=== PATIENT | female | born 1980 | race Caucasian/White ===

== ENCOUNTER → 2020-03-16 | Outpatient (CLI) | payer OTHER ==
[~2020-03-16] MED LIST: CITA40TA12 PO
== END | disposition home or self-care (01) ==
LOC: STAR 12:11
PROVIDERS: ATTEND Obstetrics & Gynecology
DX: Z01.812 Encounter for preprocedural laboratory examination (principal); Z20.828 Contact with and (suspected) exposure to other viral communicable diseases
CPT/HCPCS: 36415; 87635

== ENCOUNTER 2020-03-22 12:32 | Outpatient (CLI) | payer OTHER ==
[~2020-03-22] VITALS: Ht 162.6 cm; Wt 113.6 kg
[2020-03-22 12:38] VITALS: BP 120/72
[2020-03-22] MEDS ORDERED: PREN1TAB62 PO (12:44)
[2020-03-22] MEDS ORDERED: VALA500T4 PO (12:45)
[2020-03-23] MEDS ORDERED: CEFAZOLIN 1,000 MG ONE (07:16)
[2020-03-23] MEDS ORDERED: EPHEDRINE 50 MG/ML, 1ML ONE (07:16)
[2020-03-23] MEDS ORDERED: OXYTOCIN 10 UNITS/ML, 1ML ONE (07:16)
[2020-03-23] MEDS ORDERED: PHENYLEPHRINE 10 MG/ML ONE (07:16)
[2020-03-23] MEDS ORDERED: DEXAMETHASONE 4 MG/ML, 1ML ONE (07:16)
[2020-03-23] MEDS ORDERED: KETOROLAC 30 MG/1 ML ONE (07:16)
[2020-03-23] MEDS ORDERED: ONDANSETRON 2MG/ML, 2ML ONE (07:16)
[2020-03-23] MEDS ORDERED: FENTANYL PF 100 MCG/2ML ONE (07:16)
[2020-03-23] MEDS ORDERED: HYDROmorphone 2 MG/ML, 1ML ONE (08:03)
== END 2020-03-22 14:20 | disposition home or self-care (01) ==
LOC: LDOP 12:32
PROVIDERS: ATTEND Obstetrics & Gynecology
DX: O36.8330 Maternal care for abnormalities of the fetal heart rate or rhythm, third trimester, not applicable or unspecified (principal); Z3A.38 38 weeks gestation of pregnancy
CPT/HCPCS: 59025; J0690; J1100; J1170; J1885; J2405; J3010; J2370; J2590

== ENCOUNTER 2020-03-23 05:24 | Inpatient (IN) | payer OTHER ==
[~2020-03-23] VITALS: Ht 162.6 cm; Wt 115.0 kg
[~2020-03-23 05:24] MED LIST changes: +PREN1TAB62 PO; +VALA500T4 PO
[2020-03-23] MEDS ORDERED: LACTATED RINGERS 1,000 ML IVBOLUS ONE (05:30)
[2020-03-23] MEDS ORDERED: SODIUM CITRATE/CITRIC ACID 30 ML UDC PO ONE (05:30)
[2020-03-23] MEDS ORDERED: CALCIUM CARBONATE 500 MG TAB.CHEW PO PRN (05:30)
[2020-03-23] MEDS ORDERED: ONDANSETRON 2MG/ML, 2ML IVPush ONE (05:30)
[2020-03-23] MEDS ORDERED: METOCLOPRAMIDE 5 MG/ML, 2ML IV ONE (05:30)
[2020-03-23] MEDS ORDERED: NEWBORN KIT ONE (05:36)
[2020-03-23] MEDS ORDERED: METOCLOPRAMIDE 5 MG/ML, 2ML ONE (05:36)
[2020-03-23] MEDS ORDERED: OXYTOCIN 30U/ 0.9% NaCL 500ML 500 ML ONE (05:36)
[2020-03-23 06:09] VITALS: BP 119/74
[2020-03-23 06:13] LABS: BASOPHILS % (AUTO) 1 % (0-1); EOSINOPHILS % (AUTO) 2 % (1-7); LYMPHOCYTES % (AUTO) 20 % (22-44); MEAN CORPUSCULAR HGB CONC 33.6 g/dL (32.4-35.8); MEAN PLATELET VOLUME 8.2 fL (7.4-10.4); MONOCYTES % (AUTO) 7 % (2-9); NEUTROPHILS % (AUTO) 71 % (42-75); PLATELET COUNT 297 x10^3/uL (130-400)
[2020-03-23 06:15] LABS: MD NO
[2020-03-23] MEDS ORDERED: HYDROcodone/APAP 7.5-325MG/15ML UDC PO PRN (07:30)
[2020-03-23] MEDS ORDERED: EPHEDRINE 50 MG/ML, 1ML IVPush PRN (07:30)
[2020-03-23] MEDS ORDERED: MEPERIDINE/PF 25MG/0.5ML IVPush PRN (07:30)
[2020-03-23] MEDS ORDERED: LABETALOL 5MG/ML, 20ML IV PRN (07:30)
[2020-03-23] MEDS ORDERED: ALBUTEROL SULFATE 2.5 MG/3 ML NPPB PRN (07:30)
[2020-03-23] MEDS ORDERED: OXYcodone 5 MG/5 ML ORAL.SOL UDC PO PRN (07:30)
[2020-03-23] MEDS ORDERED: HYDROmorphone 2 MG/ML, 1ML IVPush PRN (07:30)
[2020-03-23] MEDS ORDERED: PROMETHAZINE 25 MG/ML, 1ML IV PRN (07:30)
[2020-03-23] MEDS ORDERED: hydrALAzine 20 MG/ML, 1ML IV PRN (07:30)
[2020-03-23] MEDS ORDERED: METOPROLOL 1 MG/ML, 5ML IV PRN (07:30)
[2020-03-23] MEDS ORDERED: ONDANSETRON 2MG/ML, 2ML IVPush PRN (07:30)
[2020-03-23] MEDS ORDERED: FENTANYL PF 100 MCG/2ML IV PRN (07:30)
[2020-03-23] MEDS ORDERED: MIDAZOLAM 1 MG/ML, 2ML IV PRN (07:30)
[2020-03-23] MEDS ORDERED: MORPHINE SULFATE 4 MG/ML, 1ML IVPush PRN (08:00)
[2020-03-23] MEDS ORDERED: METHYLERGONOVINE 0.2 MG/ML IM PRN (08:00)
[2020-03-23] MEDS ORDERED: MISOPROSTOL 200 MCG TABLET PR PRN (08:00)
[2020-03-23] MEDS ORDERED: IBUPROFEN 600 MG TABLET PO PRN (08:00)
[2020-03-23] MEDS: LACTATED RINGERS 1,000 ML IV SCH ×4 (08:00→18:00)
[2020-03-23] MEDS ORDERED: CARBOPROST TROMETHAMINE 250 MCG/ML, 1ML IM PRN (08:00)
[2020-03-23] MEDS ORDERED: ACETAMINOPHEN 325 MG TABLET PO PRN (08:00)
[2020-03-23] MEDS ORDERED: morphine SULFATE 10 MG/ML, 1ML IVPush PRN (08:00)
[2020-03-23] MEDS ORDERED: SIMETHICONE 80 MG CHEW TAB PO PRN (08:00)
[2020-03-23] MEDS ORDERED: ONDANSETRON 2MG/ML, 2ML IV PRN (08:00)
[2020-03-23] MEDS ORDERED: MISOPROSTOL 200 MCG TABLET ONE (08:04)
[2020-03-23] MEDS: PRENATAL VIT/IRON/FA 1 EACH TABLET PO SCH (09:00)
[2020-03-23] MEDS ORDERED: OXYcodone 5 MG/5 ML ORAL.SOL UDC ONE (10:05)
[2020-03-23] MEDS: OXYTOCIN 30U/ 0.9% NaCL 500ML 500 ML IV SCH ×2 (10:09→18:00)
[2020-03-23 11:00] VITALS: BP 108/74
[2020-03-23] MEDS: KETOROLAC 30 MG/1 ML IVPush SCH ×2 (14:57→21:07)
[2020-03-23 15:00] VITALS: BP 115/76
[2020-03-23] MEDS: OXYcodone/APAP 5/325MG TABLET PO PRN ×2 (19:27→23:21)
[2020-03-23] MEDS: DOCUSATE 100 MG CAPSULE PO PRN (19:27)
[2020-03-23 19:29] LABS: BASOPHILS % (AUTO) 0 % (0-1); EOSINOPHILS % (AUTO) 0 % (1-7); LYMPHOCYTES % (AUTO) 12 % (22-44); MEAN CORPUSCULAR HEMOGLOBIN 31.8 pg (27.0-34.8); MEAN CORPUSCULAR HGB CONC 33.2 g/dL (32.4-35.8); MEAN PLATELET VOLUME 8.5 fL (7.4-10.4); MONOCYTES % (AUTO) 5 % (2-9); NEUTROPHILS % (AUTO) 83 % (42-75); PLATELET COUNT 258 x10^3/uL (130-400); RED BLOOD COUNT 3.51 x10^6/uL (3.82-5.3); RED CELL DISTRIBUTION WIDTH 14.1 % (9.6-15.2)
[2020-03-23 19:50] VITALS: BP 108/71
[2020-03-23 19:53] LABS: MD SCAN
[2020-03-24 00:10] VITALS: BP 112/72
[2020-03-24] MEDS: KETOROLAC 30 MG/1 ML IVPush SCH ×4 (03:45→21:57)
[2020-03-24] MEDS: OXYTOCIN 30U/ 0.9% NaCL 500ML 500 ML IV SCH ×2 (04:00→14:00)
[2020-03-24] MEDS: LACTATED RINGERS 1,000 ML IV SCH ×5 (04:00→16:00)
[2020-03-24] MEDS: OXYcodone/APAP 5/325MG TABLET PO PRN ×3 (05:37→19:50)
[2020-03-24 05:40] VITALS: BP 121/78
[2020-03-24 07:45] VITALS: BP 109/74
[2020-03-24] MEDS: PRENATAL VIT/IRON/FA 1 EACH TABLET PO SCH (09:28)
[2020-03-24] MEDS: DOCUSATE 100 MG CAPSULE PO PRN ×2 (09:28→19:50)
[2020-03-24 11:17] VITALS: BP 110/75
[2020-03-24] MEDS ORDERED: OXYcodone/APAP 5/325MG TABLET ONE (12:37)
[2020-03-24 16:47] VITALS: BP 121/78
[2020-03-24 20:00] VITALS: BP 117/84
[2020-03-25] MEDS: OXYTOCIN 30U/ 0.9% NaCL 500ML 500 ML IV SCH
[2020-03-25] MEDS: LACTATED RINGERS 1,000 ML IV SCH ×2
[2020-03-25] MEDS: KETOROLAC 30 MG/1 ML IVPush SCH (03:49)
[2020-03-25] MEDS: OXYcodone/APAP 5/325MG TABLET PO PRN ×2 (03:49→09:37)
[2020-03-25] MEDS ORDERED: MEASLES,MUMPS&RUBELLA VACC/PF 0.5 ML SQ-VACC ONE (05:00)
[2020-03-25 08:00] VITALS: BP 128/62
[2020-03-25] MEDS ORDERED: IBUP-1222 PO (08:59)
[2020-03-25] MEDS ORDERED: OXYC-302 PO (09:00)
[2020-03-25] MEDS ORDERED: SENN-99 PO (09:06)
[2020-03-25] MEDS: DOCUSATE 100 MG CAPSULE PO PRN (09:36)
[2020-03-25] MEDS: PRENATAL VIT/IRON/FA 1 EACH TABLET PO SCH (09:36)
== END 2020-03-25 10:22 | disposition home or self-care (01) | DRG 787 ==
LOC: LDIP 05:24 → 2NE 09:48 → 2NW 10:59
PROVIDERS: ADMIT Obstetrics & Gynecology; ATTEND Obstetrics & Gynecology
PROC: 10D00Z1 Extraction of Products of Conception, Low, Open Approach (ICD-10-PCS; principal; 2020-03-23)
PROC: 3E0234Z Introduction of Serum, Toxoid and Vaccine into Muscle, Percutaneous Approach (ICD-10-PCS; 2020-03-25)
DX: O69.1XX0 Labor and delivery complicated by cord around neck, with compression, not applicable or unspecified (principal); O98.52 Other viral diseases complicating childbirth; O99.824 Streptococcus B carrier state complicating childbirth; Z20.828 Contact with and (suspected) exposure to other viral communicable diseases; O33.8 Maternal care for disproportion of other origin; B00.9 Herpesviral infection, unspecified; Z37.0 Single live birth; Z3A.39 39 weeks gestation of pregnancy; Z23 Encounter for immunization
CPT/HCPCS: 36415; 85025; 86592; 86850; 86900; 87635; G0378; J1885; J2270; J2590; J2765; J7120

== ENCOUNTER 2020-04-12 11:25 | Inpatient (IN) | payer OTHER ==
[~2020-04-12] VITALS: Ht 162.6 cm; Wt 104.5 kg
[~2020-04-12 11:25] MED LIST changes: +IBUP-1222 PO; +OXYC-302 PO; +SENN-99 PO
[2020-04-12] MEDS ORDERED: ACETAMINOPHEN 500 MG TABLET ONE (12:11)
--- NOTE | 2020-04-12 12:15 | NUR ---
TASK RN: PT HERE FOR BACK PAIN X2 DAYS AND SOB. HX 21 DAYS AGO. PT FEBRILE, MEDICATED WITH 1G TYLENOL. PT PLACED ON CARDIAC AND VITALS MONITORS. SOHA BOSE AT BEDSIDE FOR EVAL.
[2020-04-12] MEDS ORDERED: ACETAMINOPHEN 500 MG TABLET PO ONE (12:30)
[2020-04-12] MEDS ORDERED: SODIUM CHLORIDE 0.9% 1,000ML IVBOLUS ONE ×2 (12:30→14:00)
--- NOTE | 2020-04-12 12:38 | NUR ---
DISCUSSED WITH ERP, PT MEETING SIRS CRITERIA. ABX ORDERED AND ADMIN POST BC.
[2020-04-12 12:43] LABS: BASOPHILS % (AUTO) 0 % (0-1); EOSINOPHILS % (AUTO) 1 % (1-7); LYMPHOCYTES % (AUTO) 8 % (22-44); MEAN CORPUSCULAR HEMOGLOBIN 31.5 pg (27.0-34.8); MEAN CORPUSCULAR HGB CONC 33.5 g/dL (32.4-35.8); MEAN PLATELET VOLUME 7.5 fL (7.4-10.4); MONOCYTES % (AUTO) 7 % (2-9); NEUTROPHILS % (AUTO) 84 % (42-75); PLATELET COUNT 323 x10^3/uL (130-400); RED BLOOD COUNT 4.32 x10^6/uL (3.82-5.3); RED CELL DISTRIBUTION WIDTH 13.4 % (9.6-15.2)
[2020-04-12 12:46] LABS: MD NO
[2020-04-12 12:54] LABS: ALANINE AMINOTRANSFERASE 26 U/L (12-78); ALBUMIN 3.3 g/dL (3.4-5.0); ANION GAP 7 mmol/L (5-15); CALCIUM 8.9 mg/dL (8.5-10.1); CHLORIDE 106 mmol/L (98-107); CREATININE 0.89 mg/dL (0.55-1.02)
[2020-04-12 13:01] LABS: ALKALINE PHOSPHATASE 146 U/L (45-117); BILIRUBIN,TOTAL 0.5 mg/dL (0.2-1.0); TOTAL PROTEIN 7.9 g/dL (6.4-8.2)
[2020-04-12] MEDS ORDERED: CEFTRIAXONE PMX 1GM/50ML 50 ML ONE (13:25)
[2020-04-12] MEDS ORDERED: MORPHINE SULFATE 4 MG/ML, 1ML ONE ×2 (13:25→17:07)
[2020-04-12] MEDS ORDERED: ONDANSETRON 2MG/ML, 2ML ONE (13:25)
[2020-04-12] MEDS ORDERED: ONDANSETRON 2MG/ML, 2ML IVPush ONE (13:30)
[2020-04-12] MEDS ORDERED: CEFTRIAXONE PMX 1GM/50ML 50 ML IV ONE (13:30)
[2020-04-12] MEDS: MORPHINE SULFATE 4 MG/ML, 1ML IVPush PRN ×2 (13:34→17:13)
--- NOTE | 2020-04-12 14:20 | NUR ---
PT AMBULATED TO BR WITH STEADY GAIT, UA COLLECTED AND SENT TO LAB. PT DESATS TO 85% ON RA, WILL UPDATE ERMD PT STILL REQUIRING SUPP O2. AWAITING CT
[2020-04-12 14:31] LABS: MICROSCOPIC INDICATED
--- NOTE | 2020-04-12 15:14 | NUR ---
PT TO CT AT THIS TIME
[2020-04-12] MEDS ORDERED: HEPARIN 25,000 UNITS/250ML PMX 250 ML IV PRN (15:30)
[2020-04-12] MEDS ORDERED: HEPARIN 5,000 UNITS/ML, 1ML IV ONE (15:30)
[2020-04-12] MEDS ORDERED: HEPARIN 5,000 UNITS/ML, 1ML IV PRN (15:30)
[2020-04-12] MEDS ORDERED: HEPARIN 25,000 UNITS/250ML PMX 250 ML ONE (15:35)
[2020-04-12] MEDS ORDERED: HEPARIN 5,000 UNITS/ML, 1ML ONE (15:35)
--- NOTE | 2020-04-12 17:25 | NUR ---
PT MEDICATED WITH ADDITIONAL PAIN MEDICATIONS PER REQUEST, GIVEN ICE WATER PER ERMD OK.
--- NOTE | 2020-04-12 18:00 | NUR ---
PT WITH INCREASED WOB, SATING 88 ON 2 L, O2 UP TO 4LNC PT SATING 92%. ADMITTING MD MADE AWARE, PT TO CHANGE FOR HEPARIN GTT TO LOVENOX, MED REQUEST SENT TO PHARMACY.
[2020-04-12] MEDS ORDERED: ENOXAPARIN 100 MG/ML ONE (18:04)
--- NOTE | 2020-04-12 18:14 | NUR ---
RT CALLED TO ASSESS PT, HELP TO BRAINSTORM TO HELP PT WITH WOB, RT UNABLE TO EVAL PT AT THIS TIME. PT TO 6L NC, HOB RAISED WITH IMPROVEMENT IN BREATHING EFFORT. WILL CONTINUE TO MONITOR CLOSELY
[2020-04-12] MEDS: ENOXAPARIN 100 MG/ML SQ SCH (18:15)
--- NOTE | 2020-04-12 18:39 | NUR ---
ATTEMPT TO CALL REPORT X1, RN TO CALL BACK
--- NOTE | 2020-04-12 18:51 | NUR ---
THIS RN ATTEMPTED TO CALL REPORT AGAIN, TOLD NOC RN TO CALL BACK
--- NOTE | 2020-04-12 18:57 | NUR ---
REPORT FROM YULIA GARCIA ASSUMING CARE OF PT AT THIS TIME
[2020-04-12] MEDS ORDERED: BISACODYL 10 MG SUPP PR PRN (19:00)
[2020-04-12] MEDS ORDERED: MELATONIN 5 MG TABLET PO PRN (19:00)
[2020-04-12] MEDS ORDERED: DOCUSATE 100 MG CAPSULE PO PRN (19:00)
[2020-04-12] MEDS ORDERED: ONDANSETRON ODT 4 MG PO PRN (19:00)
--- NOTE | 2020-04-12 19:21 | NUR ---
REPORT TO ARLEY GARCIA PT READY FOR TRANSFER TO [facility]
[2020-04-12] MEDS: HYDROmorphone 2 MG/ML, 1ML IVPush PRN (20:20)
[2020-04-12] MEDS: SODIUM CHLORIDE 0.9% 1,000 ML IV SCH (22:00)
[2020-04-12] MEDS: OXYcodone IR 5MG TABLET PO PRN (23:07)
[2020-04-12 23:21] VITALS: BP 122/78
[2020-04-13] MEDS: HYDROmorphone 2 MG/ML, 1ML IVPush PRN ×3 (02:38→13:40)
[2020-04-13 03:50] VITALS: BP 120/83
[2020-04-13 04:52] LABS: BASOPHILS % (AUTO) 0 % (0-1); EOSINOPHILS % (AUTO) 2 % (1-7); LYMPHOCYTES % (AUTO) 16 % (22-44); MD NO; MEAN CORPUSCULAR HEMOGLOBIN 31.9 pg (27.0-34.8); MEAN CORPUSCULAR HGB CONC 33.6 g/dL (32.4-35.8); MEAN PLATELET VOLUME 7.8 fL (7.4-10.4); MONOCYTES % (AUTO) 8 % (2-9); NEUTROPHILS % (AUTO) 74 % (42-75); PLATELET COUNT 299 x10^3/uL (130-400); RED BLOOD COUNT 3.67 x10^6/uL (3.82-5.3); RED CELL DISTRIBUTION WIDTH 13.2 % (9.6-15.2)
[2020-04-13 05:53] LABS: CHLORIDE 108 mmol/L (98-107)
[2020-04-13 06:10] LABS: ALANINE AMINOTRANSFERASE 17 U/L (12-78); ALBUMIN 2.6 g/dL (3.4-5.0); ALKALINE PHOSPHATASE 116 U/L (45-117); ANION GAP 7 mmol/L (5-15); BILIRUBIN,TOTAL 0.4 mg/dL (0.2-1.0); CALCIUM 8.3 mg/dL (8.5-10.1); CREATININE 0.68 mg/dL (0.55-1.02); TOTAL PROTEIN 6.6 g/dL (6.4-8.2)
[2020-04-13 06:32] VITALS: BP 124/80
[2020-04-13] MEDS: PANTOPRAZOLE 40MG TABLET PO SCH (06:45)
[2020-04-13] MEDS: OXYcodone IR 5MG TABLET PO PRN ×4 (06:46→21:46)
[2020-04-13] MEDS: SODIUM CHLORIDE 0.9% 1,000 ML IV SCH ×2 (07:40→17:29)
[2020-04-13] MEDS: ENOXAPARIN 100 MG/ML SQ SCH ×2 (07:40→21:46)
[2020-04-13] MEDS: CEFTRIAXONE PMX 1GM/50ML 50 ML IV SCH (13:41)
[2020-04-13 14:07] VITALS: BP 117/83
[2020-04-13] MEDS: ACETAMINOPHEN 325 MG TABLET PO PRN (17:34)
[2020-04-13 20:22] VITALS: BP 111/76
[2020-04-14 01:51] VITALS: BP 114/73
[2020-04-14] MEDS: OXYcodone IR 5MG TABLET PO PRN ×4 (02:04→20:38)
[2020-04-14 05:51] LABS: BASOPHILS % (AUTO) 1 % (0-1); EOSINOPHILS % (AUTO) 6 % (1-7); LYMPHOCYTES % (AUTO) 18 % (22-44); MEAN CORPUSCULAR HEMOGLOBIN 32.1 pg (27.0-34.8); MEAN CORPUSCULAR HGB CONC 33.5 g/dL (32.4-35.8); MEAN PLATELET VOLUME 7.6 fL (7.4-10.4); MONOCYTES % (AUTO) 6 % (2-9); NEUTROPHILS % (AUTO) 70 % (42-75); PLATELET COUNT 298 x10^3/uL (130-400); RED BLOOD COUNT 3.51 x10^6/uL (3.82-5.3); RED CELL DISTRIBUTION WIDTH 13.4 % (9.6-15.2)
[2020-04-14 05:59] LABS: MD NO
[2020-04-14 06:05] LABS: ANION GAP 9 mmol/L (5-15); CALCIUM 8.3 mg/dL (8.5-10.1); CHLORIDE 109 mmol/L (98-107); CREATININE 0.54 mg/dL (0.55-1.02)
[2020-04-14] MEDS: SODIUM CHLORIDE 0.9% 1,000 ML IV SCH ×2 (06:15→15:16)
[2020-04-14] MEDS: PANTOPRAZOLE 40MG TABLET PO SCH (06:16)
[2020-04-14 07:35] VITALS: BP 123/81
[2020-04-14] MEDS: ENOXAPARIN 100 MG/ML SQ SCH ×2 (11:32→20:38)
[2020-04-14 12:36] VITALS: BP 109/74
[2020-04-14] MEDS: CEFTRIAXONE PMX 1GM/50ML 50 ML IV SCH (12:51)
[2020-04-14] MEDS: POLYETHYLENE GLYCOL 17 GM PACKET PO PRN (16:35)
[2020-04-14 20:35] VITALS: BP 112/76
[2020-04-15 00:19] VITALS: BP 109/79
[2020-04-15] MEDS: SODIUM CHLORIDE 0.9% 1,000 ML IV SCH ×2 (06:00→17:02)
[2020-04-15] MEDS: PANTOPRAZOLE 40MG TABLET PO SCH (06:01)
[2020-04-15] MEDS: OXYcodone IR 5MG TABLET PO PRN (06:02)
[2020-04-15 06:29] VITALS: BP 105/67
[2020-04-15] MEDS: ACETAMINOPHEN 325 MG TABLET PO PRN (06:41)
[2020-04-15] MEDS: ENOXAPARIN 100 MG/ML SQ SCH (10:08)
[2020-04-15 12:35] VITALS: BP 107/74
[2020-04-15] MEDS: CEFTRIAXONE PMX 1GM/50ML 50 ML IV SCH (13:08)
[2020-04-15] MEDS: POLYETHYLENE GLYCOL 17 GM PACKET PO PRN (17:09)
[2020-04-15 20:10] VITALS: BP 132/89
[2020-04-15] MEDS: APIXABAN 5 MG TABLET PO SCH (21:00)
[2020-04-16 01:46] VITALS: BP 110/74
[2020-04-16] MEDS: SODIUM CHLORIDE 0.9% 1,000 ML IV SCH (02:00)
[2020-04-16] MEDS: PANTOPRAZOLE 40MG TABLET PO SCH (05:53)
[2020-04-16 06:18] VITALS: BP 118/80
[2020-04-16] MEDS: APIXABAN 5 MG TABLET PO SCH (09:29)
[2020-04-16] MEDS ORDERED: APIX5TAB PO (11:26)
[2020-04-16 12:01] VITALS: BP 118/82
[2020-04-22] MEDS ORDERED: APIXABAN 5 MG TABLET PO SCH (21:00)
== END 2020-04-16 12:10 | disposition home or self-care (01) | DRG 776 ==
LOC: ED 11:57 → EDIP 15:10 → SUATTDRO 17:21 → 4WST 20:06 → DCLOUNGE 04-16 12:04
PROVIDERS: ADMIT Hospitalist; ATTEND Family Medicine
DX: O88.83 Other embolism in the puerperium (principal); O87.1 Deep phlebothrombosis in the puerperium; J96.01 Acute respiratory failure with hypoxia; O86.20 Urinary tract infection following delivery, unspecified; O99.215 Obesity complicating the puerperium; O99.335 Smoking (tobacco) complicating the puerperium; O99.345 Other mental disorders complicating the puerperium; F99 Mental disorder, not otherwise specified; O99.53 Diseases of the respiratory system complicating the puerperium; E66.9 Obesity, unspecified; F17.210 Nicotine dependence, cigarettes, uncomplicated; F41.9 Anxiety disorder, unspecified; Z20.828 Contact with and (suspected) exposure to other viral communicable diseases; Z86.19 Personal history of other infectious and parasitic diseases; Z98.891 History of uterine scar from previous surgery
CPT/HCPCS: 36415; 36600; 71045; 71275; 80048; 80053; 81001; 82728; 82803; 83036; 83605; 83615; 83735; 84145; 84443; 85025; 85302; 85303; 85305; 85306; 85379; 85384; 85520; 85598; 85610; 85613; 85670; 85730; 85732; 86140; 86146; 86147; 87040; 87635; 93005; 93306; 93970; 96361; 96365; 96375; 99291; G0378; J0696; J1170; J1644; J1650; J2405; J2270; J7030

== ENCOUNTER 2020-11-24 17:45 | Emergency (ER) | payer OTHER ==
[~2020-11-24] VITALS: Ht 165.1 cm; Wt 97.1 kg
[~2020-11-24 17:45] MED LIST changes: +APIX5TAB PO; -OXYC-302 PO; +OXYC1TAB14 PO
--- NOTE | 2020-11-24 19:08 | NUR ---
PT CAME INTO THE ED THIS EVENING DUE TO LOWER EXTREMITY PAIN THAT HAS BEEN SPREADING UP HER LEGS. PT HAS 1+ PITTING EDEMA ON LOWER EXTREMITIES BUT NOT ON FEET, BILATERAL PEDAL PULSES 2+. NO ERYTHEMA NOTED AT THIS TIME. DENIES TRAUMA, PT DENIES SOB OR SENSATION CHANGES. PT REPORTS PAIN UP LEGS TO ABOUT MIDTHIGH. 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 PT PLACED ON MONITORING, PROVIDED WARM BLANKETS, CHANGED INTO GOWN, BED IN LOWEST, RAILS ENGAGED, CALL LIGHT ON LAP, WCTM.
--- NOTE | 2020-11-24 19:47 | NUR ---
PT IN US AT THIS TIME. NAD. Patient is resting comfortably in bed. Bed in lowest, rails engaged, call light on lap. Vital Signs within normal limits. WCTM.
--- NOTE | 2020-11-24 20:16 | NUR ---
Patient is resting comfortably in bed. Bed in lowest, rails engaged, call light on lap. Vital Signs within normal limits. PT BACK FROM US. WCTM.
[2020-11-24 21:07] VITALS: BP 99/54
--- NOTE | 2020-11-24 21:10 | NUR ---
Patient given discharge instructions and they have confirmed that they understand the instructions. Patient ambulatory with steady gait. NAD, all questions answered appropriately, denies additional needs at this time. No personal belongings left in room after discharge.
== END 2020-11-24 21:11 | disposition home or self-care (01) ==
LOC: ED 20:13
DX: M79.661 Pain in right lower leg (principal); M79.662 Pain in left lower leg; R07.89 Other chest pain; R06.02 Shortness of breath; R94.31 Abnormal electrocardiogram [ECG] [EKG]; Z79.01 Long term (current) use of anticoagulants; F17.290 Nicotine dependence, other tobacco product, uncomplicated
CPT/HCPCS: 93005; 93970; 99284